=== PATIENT | male | born 2000 | race African-American/Black ===

== ENCOUNTER 2021-01-05 06:58 | Emergency (ER) | payer BC, OTHER ==
[2021-01-05 07:30] LABS: Urine Blood Negative (Negative); Urine Glucose Negative (Negative); Urine Protein Negative (Negative); Urine Specific Gravity 1.025 (1.005-1.030); Urine pH 5.5 (5.0-7.0)
[2021-01-05 07:42] LABS: Absolute Lymphocytes (CBC) 1.6 K/uL (0.7-4.9); Basophils % 0.5 % (0-1.3); Hematocrit 40.3 % (39.6-49.0); Lymphocytes % 23.7 % (15.3-44.8); MPV 8.1 fL (7.6-11.3); RBC Red Blood Cell Count 4.46 M/uL (4.33-5.43)
[2021-01-05 07:57] LABS: ALT/SGPT 23 U/L (12-78); AST/SGOT 29 U/L (15-37); Albumin 4.1 g/dL (3.4-5.0); Alkaline Phosphatase 67 U/L (45-117); BUN Blood Urea Nitrogen 9 mg/dL (7-18); Bicarbonate 31 mmol/L (21-32); Bilirubin Direct 0.2 mg/dL (0-0.2); Bilirubin Total 0.8 mg/dL (0.2-1.0); Glucose Level 101 mg/dL (74-106); Lipase 29 U/L (73-393); Potassium 3.8 mmol/L (3.5-5.1); Protein, Total 7.9 g/dL (6.4-8.2); Sodium Level 141 mmol/L (136-145)
[2021-01-05] MEDS ORDERED: ONDANSETRON 4 MG/2 ML VIAL ONE (08:05)
[2021-01-05] MEDS ORDERED: NA CHLORIDE 0.9% 1,000 ML ONE (08:05)
[2021-01-05] MEDS ORDERED: MORPHINE 2 MG/ML SYR ONE (08:05)
[2021-01-05] MEDS ORDERED: FAMOTIDINE 20 MG/2 ML VIAL IV ONE (08:40)
--- NOTE | 2021-01-05 08:41 | RAD REPORT ---
EXAM DESCRIPTION: CT - Abdomen Pelvis W Contrast - 01/05/2021 8:12 am CLINICAL HISTORY: ABD PAIN COMPARISON: None TECHNIQUE: Biphasic, helical CT imaging of the abdomen and pelvis was performed following 100 ml non -ionic IV contrast. No oral contrast administered. All CT scans are performed using dose optimization technique as appropriate and may include automated exposure control or mA/KV adjustment according to patient size. FINDINGS: No suspicious findings in the lung bases. The liver, spleen, and pancreas show no suspicious findings. Gallbladder and biliary tree are also wi thout suspicious finding. Symmetric renal function is seen with no hydronephrosis or suspicious renal mass. No pyelonephritis o r acute parenchymal process. No bladder abnormalities. No adrenal abnormalities. No gastric dilatation or gastric wall thickening. The appendix is normal. No colon dilatation. Patien t does show evidence for a mild colon wall edema pattern from mid ascending colon to the rectum. [place] n is decompressed which accentuates this appearance. A mild colitis or enteritis is suspected. No col on mass. No free air, free fluid or inflammatory stranding. No hernia, mass or bulky lymphadenopathy. No suspicious bony findings. IMPRESSION: Suspected mild colitis/ enteritis pattern. No appendicitis, free air or surgically emergent finding.
--- NOTE | 2021-01-05 09:02 | EDPHYS ---
Physician Documentation [facility] Name: Migue Delcid Age: 20 yrs Sex: Male : 2000 Arrival Date: 01/05/2021 Time: 07:01 Bed 6 Private MD: ED Physician Brenden Sanford HPI: 01/05 08:08 This 20 yrs old Black Male presents to ER via Ambulatory with complaints of Abdominal tylor Pain. 08:08 The patient presents with abdominal pain in the upper abdomen, in the lower abdomen. tylor Onset: The symptoms/episode began/occurred 1 year(s) ago. The symptoms do not radiate. Associated signs and symptoms: Pertinent positives: nausea. The symptoms are described as crampy, sharp. Modifying factors: The symptoms are alleviated by nothing, the symptoms are aggravated by nothing. Severity of pain: At its worst the pain was mild moderate in the emergency department the pain has improved mildly. The patient has not experienced similar symptoms in the past. 1 YEARS OF ON OFF PAIN. Historical: - Allergies: 07:14 No Known Allergies; sv - PMHx: 07:14 Asthma; sv - PSHx: 07:14 None; sv - Immunization history:: Adult Immunizations up to date, Flu vaccine is up to date. - Social history:: Smoking status: Patient denies any tobacco usage or history of. - Family history:: not pertinent. ROS: 08:08 Constitutional: Negative for fever, chills, and weight loss, Eyes: Negative for injury, tylor pain, redness, and discharge, ENT: Negative for injury, pain, and discharge, Neck: Negative for injury, pain, and swelling, Cardiovascular: Negative for chest pain, palpitations, and edema, Respiratory: Negative for shortness of breath, cough, wheezing, and pleuritic chest pain, Back: Negative for injury and pain, : Negative for injury, bleeding, discharge, and swelling, MS/Extremity: Negative for injury and deformity, Skin: Negative for injury, rash, and discoloration, Neuro: Negative for headache, weakness, numbness, tingling, and seizure, Psych: Negative for depression, anxiety, suicide ideation, homicidal ideation, and hallucinations, Allergy/Immunology: Negative for hives, rash, and allergies, Endocrine: Negative for neck swelling, polydipsia, polyuria, polyphagia, and marked weight changes, Hematologic/Lymphatic: Negative for swollen nodes, abnormal bleeding, and unusual bruising. 08:08 Abdomen/GI: Positive for abdominal pain, nausea, of the right upper quadrant, left upper quadrant, right lower quadrant and left lower quadrant. Exam: 08:08 Constitutional: This is a well developed, well nourished patient who is awake, alert, tylor and in no acute distress. Head/Face: Normocephalic, atraumatic. Eyes: Pupils equal round and reactive to light, extra-ocular motions intact. Lids and lashes normal. Conjunctiva and sclera are non-icteric and not injected. Cornea within normal limits. Periorbital areas with no swelling, redness, or edema. ENT: Nares patent. No nasal discharge, no septal abnormalities noted. Tympanic membranes are normal and external auditory canals are clear. Oropharynx with no redness, swelling, or masses, exudates, or evidence of obstruction, uvula midline. Mucous membranes moist. Neck: Trachea midline, no thyromegaly or masses palpated, and no cervical lymphadenopathy. Supple, full range of motion without nuchal rigidity, or vertebral point tenderness. No Meningismus. Chest/axilla: Normal chest wall appearance and motion. Nontender with no deformity. No lesions are appreciated. Cardiovascular: Regular rate and rhythm with a normal S1 and S2. No gallops, murmurs, or rubs. Normal PMI, no JVD. No pulse deficits. Respiratory: Lungs have equal breath sounds bilaterally, clear to auscultation and percussion. No rales, rhonchi or wheezes noted. No increased work of breathing, no retractions or nasal flaring. Back: No spinal tenderness. No costovertebral tenderness. Full range of motion. Male : Normal genitalia with no discharge or lesions. Skin: Warm, dry with normal turgor. Normal color with no rashes, no lesions, and no evidence of cellulitis. MS/ Extremity: Pulses equal, no cyanosis. Neurovascular intact. Full, normal range of motion. Neuro: Awake and alert, GCS 15, oriented to person, place, time, and situation. Cranial nerves II-XII grossly intact. Motor strength 5/5 in all extremities. Sensory grossly intact. Cerebellar exam normal. Normal gait. Psych: Awake, alert, with orientation to person, place and time. Behavior, mood, and affect are within normal limits. 08:08 Abdomen/GI: Inspection: abdomen appears normal, Bowel sounds: normal, Palpation: mild abdominal tenderness, in all quadrants, Liver: no appreciated palpable abnormalities, Hernia: not appreciated. Vital Signs: 07:12 Weight 81.65 kg; Height 6 ft. 0 in. (182.88 cm); Pain 8/10; sv 07:17 BP 117 / 84; Pulse 51; Resp 18; Temp 97.9(O); Pulse Ox 100% on R/A; Pain 7/10; em 08:06 BP 118 / 70; Pulse 49; Resp 18; Pulse Ox 99% on R/A; Pain 4/10; em 07:12 Body Mass Index 24.41 (81.65 kg, 182.88 cm) sv MDM: 07:20 Patient medically screened. [facility] 07:30 Patient medically screened. [facility] 01/05 07:25 Order name: Basic Metabolic Panel; Complete Time: 08:10 em 01/05 07:25 Order name: CBC with Diff; Complete Time: 08:10 01/05 07:25 Order name: Hepatic Function; Complete Time: 08:10 01/05 07:25 Order name: Lipase; Complete Time: 08:10 01/05 07:30 Order name: Urine Dipstick-Ancillary; Complete Time: 08:10 EDNY 01/05 07:39 Order name: CT Abd/Pelvis - IV Contrast Only; Complete Time: 08:59 [facility] 01/05 07:25 Order name: IV Saline Lock; Complete Time: 07:34 em 01/05 07:25 Order name: Labs collected and sent; Complete Time: 07:34 01/05 07:25 Order name: Urine Dipstick-Ancillary (obtain specimen); Complete Time: 07:34 em Administered Medications: 07:48 Drug: NS 0.9% 1000 ml Route: IV; Rate: 1 bolus; Site: right antecubital; em 07:48 Drug: Zofran (Ondansetron) 4 mg Route: IVP; Site: right antecubital; em 08:25 Follow up: Response: No adverse reaction em 07:50 Drug: morphine 2 mg Route: IVP; Site: right antecubital; em 08:25 Follow up: Response: No adverse reaction; Marked relief of symptoms; Pain is decreased; em RASS: Alert and Calm (0) 08:23 Drug: Pepcid (famotidine) 20 mg Route: IVP; Site: right antecubital; em 09:28 Follow up: Response: No adverse reaction em Disposition: 01/05/21 09:01 Discharged to Home. Impression: Abdominal tenderness - MILD ENTERITIS, Gastritis, unspecified, Noninfective gastroenteritis and colitis, unspecified. - Condition is Stable. - Discharge Instructions: Abdominal Pain, Adult, Nausea and Vomiting, Adult, Abdominal Pain, Adult, [id number], Colitis. - Prescriptions for Bentyl 20 mg Oral Tablet - take 1 tablet by ORAL route every 6 hours As needed; 20 tablet. Pepcid 20 mg Oral Tablet - take 1 tablet by ORAL route every 12 hours for 10 days; 20 tablet. Zofran 4 mg Oral Tablet - take 1 tablet by ORAL route every 12 hours As needed; 20 tablet. Flagyl 500 mg Oral Tablet - take 1 tablet by ORAL route every 8 hours for 7 days; 21 tablet. Cipro 500 mg Oral Tablet - take 1 tablet by ORAL route every 12 hours for 7 days; 14 tablet. - Medication Reconciliation Form, Thank You Letter, Antibiotic Education, Prescription Opioid Use, Work release form form. - Follow up: Private Physician; When: 2 - 3 days; Reason: Recheck today's complaints, Continuance of care, Re-evaluation by your physician. Follow up: Arthur Tse; When: 2 - 3 days; Reason: Recheck today's complaints, Continuance of care, Re-evaluation by your physician. - Problem is new. - Symptoms have improved. Signatures: Dispatcher [employer] Tiffani Huertas RN RN sv Anderson, Corey, MD MD cha Munoz, Edgar, RN RN em Corrections: (The following items were deleted from the chart) 09:29 09:01 01/05/2021 09:01 Discharged to Home. Impression: Abdominal tenderness - MILD em ENTERITIS; Gastritis, unspecified; Noninfective gastroenteritis and colitis, unspecified. Condition is Stable. Discharge Instructions: Abdominal Pain, Adult, Nausea and Vomiting, Adult, Abdominal Pain, Adult, [id number]. Prescriptions for Bentyl 20 mg Oral Tablet - take 1 tablet by ORAL route every 6 hours As needed; 20 tablet, Pepcid 20 mg Oral Tablet - take 1 tablet by ORAL route every 12 hours for 10 days; 20 tablet, Zofran 4 mg Oral Tablet - take 1 tablet by ORAL route every 12 hours As needed; 20 tablet. and Forms are Medication Reconciliation Form, Thank You Letter, Antibiotic Education, Prescription Opioid Use. Follow up: Private Physician; When: 2 - 3 days; Reason: Recheck today's complaints, Continuance of care, Re-evaluation by your physician. Follow up: Arthur Tse; When: 2 - 3 days; Reason: Recheck today's complaints, Continuance of care, Re-evaluation by your physician. Problem is new. Symptoms have improved. tylor
--- NOTE | 2021-01-05 09:02 | ER ---
Nurse's Notes [facility] Name: Migue Delcid Age: 20 yrs Sex: Male : 2000 Arrival Date: 01/05/2021 Time: 07:01 Bed 6 Private MD: Diagnosis: Abdominal tenderness-MILD ENTERITIS;Gastritis, unspecified;Noninfective gastroenteritis and colitis, unspecified Presentation: 01/05 07:12 Chief complaint: Patient states: sharp lower abd pain, constipation, diarrhea, and sv chills started this morning. Denies n/v. Coronavirus screen: Client denies travel out of the [place] in the last 14 days. At this time, the client does not indicate any symptoms associated with coronavirus-19. Ebola Screen: No symptoms or risks identified at this time. Risk Assessment: Do you want to hurt yourself or someone else? Patient reports no desire to harm self or others. Onset of symptoms was January 05, 2021. 07:12 Method Of Arrival: Ambulatory sv 07:12 Acuity: FADY 3 sv 07:17 Initial Sepsis Screen: Does the patient meet any 2 criteria? No. Patient's initial em sepsis screen is negative. Does the patient have a suspected source of infection? No. Patient's initial sepsis screen is negative. Triage Assessment: 07:14 General: Appears in no apparent distress. uncomfortable, Behavior is calm, cooperative, sv appropriate for age. Pain: Complains of pain in right lower quadrant and left lower quadrant. Neuro: Level of Consciousness is awake, alert, obeys commands, Oriented to person, place, time, situation, Moves all extremities. Full function Gait is steady. Respiratory: Respiratory effort is even, unlabored, Respiratory pattern is regular, symmetrical. GI: Reports constipation, diarrhea. Derm: Skin is pink, warm \T\ dry. Historical: - Allergies: 07:14 No Known Allergies; sv - PMHx: 07:14 Asthma; sv - PSHx: 07:14 None; sv - Immunization history:: Adult Immunizations up to date, Flu vaccine is up to date. - Social history:: Smoking status: Patient denies any tobacco usage or history of. - Family history:: not pertinent. Screenin:17 Abuse screen: Denies threats or abuse. Nutritional screening: No deficits noted. em Tuberculosis screening: No symptoms or risk factors identified. Fall Risk None identified. Assessment: 07:18 General: Appears in no apparent distress. comfortable, Behavior is calm, cooperative, em appropriate for age, Denies fever. Pain: Complains of pain in left lower quadrant and right lower quadrant Pain currently is 7 out of 10 on a pain scale. Pain began 1 year ago. Neuro: Level of Consciousness is awake, alert, obeys commands, Oriented to person, place, time, situation. Cardiovascular: Capillary refill < 3 seconds Patient's skin is warm and dry. Respiratory: Airway is patent Respiratory effort is even, unlabored, Respiratory pattern is regular, symmetrical. GI: Abdomen is flat, Bowel sounds present X 4 quads. Abd is soft X 4 quads Abdomen is tender to palpation in right lower quadrant and left lower quadrant Reports diarrhea. Derm: Skin is intact, is healthy with good turgor, Skin is pink, warm \T\ dry. Musculoskeletal: Capillary refill < 3 seconds, Range of motion: intact in all extremities. 08:05 Reassessment: Patient appears in no apparent distress at this time. Patient and/or em family updated on plan of care and expected duration. Pain level reassessed. Patient is alert, oriented x 3, equal unlabored respirations, skin warm/dry/pink. reports pain is better, rates pain 4/10. Vital Signs: 07:12 Weight 81.65 kg; Height 6 ft. 0 in. (182.88 cm); Pain 8/10; sv 07:17 BP 117 / 84; Pulse 51; Resp 18; Temp 97.9(O); Pulse Ox 100% on R/A; Pain 7/10; em 08:06 BP 118 / 70; Pulse 49; Resp 18; Pulse Ox 99% on R/A; Pain 4/10; em 07:12 Body Mass Index 24.41 (81.65 kg, 182.88 cm) sv ED Course: 07:01 Patient arrived in ED. bp1 07:09 Jeremi Dale, NIK is Primary Nurse. em 07:14 Triage completed. sv 07:14 Arm band placed on. sv 07:17 Patient has correct armband on for positive identification. Bed in low position. Call em light in reach. Side rails up X2. 07:20 Brenden Sanford MD is Attending Physician. [facility] 07:20 Urine collected: clean catch specimen, clear. kj1 07:25 Inserted saline lock: 20 gauge in right antecubital area, using aseptic technique. kj1 Blood collected. 07:25 Initial lab(s) drawn, by me, sent to lab. kj1 08:12 CT Abd/Pelvis - IV Contrast Only In Process Unspecified. EDOH 09:00 Arthur Tse MD is Referral Physician. [facility] 09:26 No provider procedures requiring assistance completed. IV discontinued, intact, em bleeding controlled, No redness/swelling at site. Pressure dressing applied. Administered Medications: 07:48 Drug: NS 0.9% 1000 ml Route: IV; Rate: 1 bolus; Site: right antecubital; em 07:48 Drug: Zofran (Ondansetron) 4 mg Route: IVP; Site: right antecubital; em 08:25 Follow up: Response: No adverse reaction em 07:50 Drug: morphine 2 mg Route: IVP; Site: right antecubital; em 08:25 Follow up: Response: No adverse reaction; Marked relief of symptoms; Pain is decreased; em RASS: Alert and Calm (0) 08:23 Drug: Pepcid (famotidine) 20 mg Route: IVP; Site: right antecubital; em 09:28 Follow up: Response: No adverse reaction em Outcome: 09:01 Discharge ordered by . [facility] 09:28 Discharged to home ambulatory. em 09:28 Condition: good 09:28 Discharge instructions given to patient, Instructed on discharge instructions, follow up and referral plans. medication usage, Demonstrated understanding of instructions, follow-up care, medications, Prescriptions given X 5 09:29 Patient left the ED. em Signatures: Dispatcher [employer] [facility] Tiffani Lugo, Brenden Rolon RN, MD MD cha Munoz, Edgar, RN RN Ada Oakley kj Purnima Linder Corrections: (The following items were deleted from the chart) 07:33 07:32 Initial lab(s) drawn, by me, sent to lab. kj1 kj1
[2021-01-05 09:41] VITALS: TEMP 97.9
[2021-01-05 09:43] VITALS: BP 118/70; O2SAT 99
== END 2021-01-05 09:29 | disposition home or self-care (01) ==
LOC: ER 06:58
DX: K52.9 Noninfective gastroenteritis and colitis, unspecified (principal)
CPT/HCPCS: 85025; 80048; 36415; 80076; 81003; 83690; 74177; 96375; 96374; 99284; Q9967; J2270; J7030; J2405